=== PATIENT | male | born 1990 | race African-American/Black ===

== ENCOUNTER 2024-02-27 17:00 | Inpatient (IN) | payer OTHER ==
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
--- NOTE | 2024-02-27 18:20 | RAD REPORT ---
EXAM DESCRIPTION: US - Extremity Venous Uni Ltd - 02/27/2024 6:02 pm CLINICAL HISTORY: Pain;Swelling Leg swelling and edema. COMPARISON: No comparisons FINDINGS: Right lower extremity venous system was interrogated with Doppler technique. Normal flow, compressibility and augmentation was noted. There is no DVT present. IMPRESSION: No evidence of right lower extremity deep venous thrombosis.
--- NOTE | 2024-02-27 18:21 | RAD REPORT ---
EXAM DESCRIPTION: RAD - Chest Single View - 02/27/2024 6:13 pm CLINICAL HISTORY: SWELLING Chest pain. COMPARISON: No comparisons FINDINGS: Portable technique limits examination quality. Moderate pulmonary edema suspected. The heart is moderately enlarged. No displaced fractures. IMPRESSION: Moderate volume overload/CHF pattern.
--- NOTE | 2024-02-27 18:22 | RAD REPORT ---
EXAM DESCRIPTION: RAD - Ankle Right 3 View - 02/27/2024 6:13 pm CLINICAL HISTORY: PAIN COMPARISON: No comparisons FINDINGS: Prominent soft tissue swelling is seen about the ankle. No fracture or dislocation. No agg ressive bone lesion.
[2024-02-27] MEDS ORDERED: HYDROCODONE/APAP 7.5/325 MG TAB ONE (19:20)
[2024-02-27 19:40] LABS: PT Prothrombin Time 11.9 SECONDS (9.5-12.5); PTT, Activated Partial Thromb 38.2 SECONDS (24.3-36.9); Protime INR 1.08
[2024-02-27 19:40] LABS: Absolute Eosinophils 0.2 K/uL (0-0.5); Absolute Lymphocytes (CBC) 1.5 K/uL (0.7-4.9); Absolute Monocytes 0.6 K/uL (0.1-1.3); Absolute Neutrophil 1.6 K/uL (1.8-8.0); Basophils % 1.1 % (0-1.3); Eosinophils % 3.9 % (0-4.4); Hemoglobin 12.7 g/dL (13.6-17.9); Lymphocytes % 38.5 % (15.3-44.8); MCH 28.6 pg (27.0-35.0); MCHC 32.6 g/dL (32.0-36.0); MCV 87.8 fL (80-100); MPV 8.6 fL (7.6-11.3); Monocytes % 15.4 % (3.3-12.3); Neutrophils % 41.1 % (41.7-73.7); Nucleated Red Blood Cells % 0.4 % (0-0); Platelets 204 thou/uL (152-406); RBC Red Blood Cell Count 4.44 M/uL (4.33-5.43); Red Cell Distribution Width 13.2 % (12.1-15.2)
[2024-02-27 19:50] LABS: ALT/SGPT 71 U/L (16-61); AST/SGOT 26 U/L (15-37); Albumin 3.5 g/dL (3.4-5.0); Albumin/Globulin Ratio 0.8 (1.1-1.8); Alkaline Phosphatase 81 U/L (45-117); Anion Gap 7.6 mEq/L (5.0-15.0); BUN Blood Urea Nitrogen 12 mg/dL (7-18); Bicarbonate 29 mEq/L (21-32); Bilirubin Direct < 0.2 mg/dL (0-0.2); Bilirubin Indirect, Calculated 0.2 mg/dL (0.2-0.8); Bilirubin Total 0.4 mg/dL (0.2-1.0); Globulin 4.6 g/dL (2.3-3.5); Glomerular Filtration Rate 105 ml/min (=/>90); Glucose Level 89 mg/dL (74-106); Magnesium 1.9 mg/dL (1.6-2.4); NT PRO-BNP 23 pg/mL (<125); Potassium 3.6 mEq/L (3.5-5.1); Protein, Total 8.1 g/dL (6.4-8.2); Sodium Level 137 mEq/L (136-145)
--- NOTE | 2024-02-27 20:32 | ER ---
Nurse's Notes [facility] Name: Monica Huang Age: 33 yrs Sex: Male : 1990 Arrival Date: 02/27/2024 Time: 17:00 Bed 28 Private MD: Diagnosis: Acute pulmonary edema;Edema, unspecified-peripheral Presentation: 02/26 17:17 Chief complaint: Patient states: B leg swelling with legs weeping yellow fluid. ll1 Coronavirus screen: Client denies travel out of the [place] in the last 14 days. At this time, the client does not indicate any symptoms associated with coronavirus-19. Ebola Screen: Patient denies travel to an Ebola-affected area in the 21 days before illness onset. Initial Sepsis Screen: Does the patient meet any 2 criteria? No. Patient's initial sepsis screen is negative. Does the patient have a suspected source of infection? No. Patient's initial sepsis screen is negative. Risk Assessment: Do you want to hurt yourself or someone else? Patient reports no desire to harm self or others. Onset of symptoms was February 23, 2024. 17:17 Method Of Arrival: Ambulatory ll1 17:17 Acuity: NOE 3 ll1 Triage Assessment: 17:17 General: Appears uncomfortable, Behavior is calm, cooperative, appropriate for age. ll1 Pain: Complains of pain in right leg and left leg. Derm: Reports pain yellow drainage from legs. 17:17 Musculoskeletal: Reports pain in right leg and left leg. ll1 Historical: - Allergies: 17:18 No Known Allergies; ll1 - PMHx: 17:18 Hypertensive disorder; ll1 - PSHx: 17:18 None; ll1 - Immunization history:: Adult Immunizations up to date. - Infectious Disease History:: Denies. - Social history:: Smoking status: Patient denies any tobacco usage or history of. Screenin:00 [facility] ED Fall Risk Assessment (Adult) History of falling in the last 3 months, bm8 including since admission No falls in past 3 months (0 pts) Confusion or Disorientation No (0 pts) Intoxicated or Sedated No (0 pts) Impaired Gait No (0 pts) Mobility Assist Device Used No (0 pt) Altered Elimination No (0 pt) Score/Fall Risk Level 0 - 2 = Low Risk Oriented to surroundings, Maintained a safe environment, Educated pt \T\ family on fall prevention, incl call for assistance when getting out of bed, Assessed \T\ reinforced patient's understanding of fall precautions. Abuse screen: Denies threats or abuse. Nutritional screening: No deficits noted. Tuberculosis screening: No symptoms or risk factors identified. Assessment: 19:37 General: Appears in no apparent distress. uncomfortable, obese, well groomed, well vc1 developed, Behavior is calm, cooperative, appropriate for age. Pain: Complains of pain in left leg and right leg Pain currently is 7 out of 10 on a pain scale. Quality of pain is described as pressure, Pain began gradually. Neuro: Level of Consciousness is awake, alert, obeys commands, Oriented to person, place, time, situation, Appropriate for age. Cardiovascular: Edema belem legs. Respiratory: Airway is patent Respiratory effort is even, unlabored, Respiratory pattern is regular, symmetrical, Breath sounds are clear bilaterally. GI: No deficits noted. No signs and/or symptoms were reported involving the gastrointestinal system. : No deficits noted. No signs and/or symptoms were reported regarding the genitourinary system. EENT: No deficits noted. No signs and/or symptoms were reported regarding the EENT system. Derm: Skin is intact, is healthy with good turgor, Skin is dry, Skin is normal. 23:47 General: Dayami Huang [id number]. vc1 Vital Signs: 17:17 BP 147 / 98; Pulse 71; Resp 18; Temp 98; Pulse Ox 98% ; Pain 10/10; ll1 19:36 BP 137 / 97; Pulse 91; EtCO2 99 mmHg; kmf 23:15 BP 139 / 90; Pulse 68; Pulse Ox 99% ; kmf 17:17 Pain Scale: Adult ll1 ED Course: 17:04 Patient arrived in ED. rg4 17:08 [facility] kb 17:08 Richard Ibarra MD is Attending Physician. kb 17:18 Triage completed. ll1 17:18 Arm band placed on. ll1 18:03 US Extremity Venous Unilateral Ltd In Process Unspecified. EDMS 18:15 XRAY Chest (1 view) In Process Unspecified. EDMS 18:15 Ankle Right 3 View XRAY In Process Unspecified. EDMS 19:35 Inserted saline lock: 22 gauge in right antecubital area, using aseptic technique. kmf Blood collected. 19:35 First set of blood cultures drawn Second set of blood cultures drawn by az. kmf 19:36 EKG done, by ED staff. kmf 19:36 Blood Culture Adult (2) Sent. kmf 19:36 Lactate w/ 2H reflex if indic. Sent. kmf 19:36 Basic Metabolic Panel Sent. kmf 19:36 CBC with Diff Sent. kmf 19:36 Magnesium Sent. kmf 19:36 NT PRO-BNP Sent. kmf 19:36 PT-INR Sent. kmf 19:36 Troponin HS Sent. kmf 19:37 Door closed. Noise minimized. Warm blanket given. kmf 19:37 PTT, Activated Partial Thromb Sent. kmf 19:37 LFT's Sent. kmf 20:31 Jeffrey Womack is Hospitalizing Provider. kb 22:00 Patient has correct armband on for positive identification. Bed in low position. Call bm8 light in reach. Side rails up X2. Adult w/ patient. Provided Education on: need for admission. Client placed on continuous cardiac and pulse oximetry monitoring. NIBP monitoring applied. monitor technician on. Pulse ox on. NIBP on. 22:00 No provider procedures requiring assistance completed. Patient admitted, IV remains in bm8 place. 22:50 Raymond Martini, RN is Primary Nurse. 8 Administered Medications: 19:24 Drug: Hydrocodone-Acetaminophen PO (7.5 mg-325 mg) 1 tabs PO once Route: PO; vc1 02/27 04:30 Follow up: Response: No adverse reaction 8 02/26 21:06 Drug: Furosemide IVP 40 mg IVP once; give over 2 minutes Route: IVP; Site: right vc1 antecubital; 02/27 04:30 Follow up: Response: No adverse reaction 8 Medication: 02/26 22:00 VIS not applicable for this client. bm8 Output: 21:34 Urine: 600ml (Voided); Total: 600ml. kmf 21:55 Urine: 500ml (Voided); Total: 1100ml. kmf 22:31 Urine: 300ml; Total: 1400ml. kmf 23:15 Urine: 300ml (Voided); Total: 1700ml. kmf Outcome: 20:31 Decision to Hospitalize by Provider. kb 22:00 Admitted to ER Hold. Please see [facility] for further documentation. bm8 22:00 Condition: stable 22:00 Instructed on the need for admit, Demonstrated understanding of instructions, follow-up care, 02/27 11:55 Patient left the ED. ko1 Signatures: Dispatcher [employer] EDMS Caryn Laird, VIRI-C FINAL FINISHER FORGING DIES-Cristiana Gonzalez rg4 Doretha Reardon, RN RN ll1 Mariam Navarro RN RN vc1 Mary Jane Edouard RN RN ko1 Chelsea Mims [facility] Raymond Martini RN RN bm8 Corrections: (The following items were deleted from the chart) 02/26 17:18 17:17 Pulse 71bpm; Resp 18bpm; Pulse Ox 98%; Temp 98F; ll1 ll1
--- NOTE | 2024-02-27 20:32 | EDPHYS ---
Physician Documentation [facility] Name: Monica Huang Age: 33 yrs Sex: Male : 1990 Arrival Date: 02/27/2024 Time: 17:00 Bed 28 Private MD: ED Physician Richard Ibarra HPI: 02/26 19:33 This 33 yrs old Black Male presents to ER via Ambulatory with complaints of Leg kb Swelling. 19:33 Pt is a 33 year old male who presents for swelling to right leg that started 3 days ago kb and has gotten worse. Mother states it started leaking fluid today so they came in. Pt has had swelling like this intermittent over the last year, but never with drainage.. Historical: - Allergies: 17:18 No Known Allergies; ll1 - PMHx: 17:18 Hypertensive disorder; ll1 - PSHx: 17:18 None; ll1 - Immunization history:: Adult Immunizations up to date. - Infectious Disease History:: Denies. - Social history:: Smoking status: Patient denies any tobacco usage or history of. ROS: 19:32 Constitutional: As per HPI kb Exam: 19:32 Constitutional: This is a well developed, well nourished patient who is awake, alert, kb and in no acute distress. Head/Face: Normocephalic, atraumatic. ENT: Moist Mucous membranes Cardiovascular: Regular rate Respiratory: Respirations even and unlabored. No increased work of breathing. Talking in full sentences Abdomen/GI: Soft, non-tender. No distention Skin: Warm, dry with normal turgor. Normal color. Neuro: Awake and alert, GCS 15, oriented to person, place, time, and situation. Moves all extremities. Normal gait. 19:32 Cardiovascular: Edema: edema to bilateral lower extremities, worse on the right with weeping. , 19:32 ECG was reviewed by the Attending Physician. Vital Signs: 17:17 BP 147 / 98; Pulse 71; Resp 18; Temp 98; Pulse Ox 98% ; Pain 10/10; ll1 19:36 BP 137 / 97; Pulse 91; EtCO2 99 mmHg; kmf 23:15 BP 139 / 90; Pulse 68; Pulse Ox 99% ; kmf 17:17 Pain Scale: Adult ll1 MDM: 17:08 Patient medically screened. kb 19:33 Differential diagnosis: dvt, chf, lymph edema, cellulitis. Data reviewed: vital signs, kb nurses notes. 20:30 Consideration of Admission/Observation Patient was admitted/placed on observation. kb Escalation of care including admission/observation considered. Management of patient was discussed with the following: Hospitalist: Dr Womack accepts pt for admission. Historians other than the Patient: Parent: mother. Counseling: I had a detailed discussion with the patient and/or guardian regarding the historical points, exam findings, and any diagnostic results supporting the discharge/admit diagnosis, lab results, radiology results, the need for further work-up and treatment in the hospital. 02/26 17:24 Order name: Basic Metabolic Panel; Complete Time: 20:04 ll1 02/26 17:24 Order name: CBC with Diff; Complete Time: 19:45 ll1 02/26 17:24 Order name: Magnesium; Complete Time: 20:04 ll1 02/26 17:24 Order name: NT PRO-BNP; Complete Time: 20:04 ll1 02/26 17:24 Order name: PT-INR; Complete Time: 19:45 ll1 02/26 17:24 Order name: Troponin HS; Complete Time: 20:04 ll1 02/26 17:25 Order name: Blood Culture Adult (2) ll1 02/26 17:25 Order name: Lactate w/ 2H reflex if indic.; Complete Time: 20:04 ll1 02/26 17:25 Order name: LFT's; Complete Time: 20:04 ll1 02/26 19:29 Order name: PTT, Activated Partial Thromb; Complete Time: 19:45 EDMS 02/26 20:32 Order name: UDS 02/26 22:42 Order name: Troponin High Sensitivity; Complete Time: 22:49 EDMS 02/27 01:59 Order name: CBC with Automated Diff EDMS 02/27 02:13 Order name: Troponin High Sensitivity EDMS 02/27 02:22 Order name: Basic Metabolic Panel EDMS 02/27 02:22 Order name: Phosphorus EDMS 02/27 02:22 Order name: Lipid Profile EDMS 02/27 02:22 Order name: Magnesium EDMS 02/27 02:22 Order name: Thyroid Stimulating Hormone EDMS 02/27 02:22 Order name: Transferrin Sat/Iron Binding EDMS 02/26 17:24 Order name: XRAY Chest (1 view); Complete Time: 18:25 ll1 18 17:24 Order name: US Extremity Venous Unilateral Ltd; Complete Time: 18:25 ll1 02/26 17:24 Order name: Ankle Right 3 View XRAY; Complete Time: 18:25 ll1 18 17:24 Order name: Cardiac monitoring; Complete Time: 19:36 ll1 18 17:24 Order name: EKG - Nurse/Tech; Complete Time: 19:36 ll1 02/26 17:24 Order name: IV Saline Lock; Complete Time: 19:16 ll1 18 17:24 Order name: Labs collected and sent; Complete Time: 19:16 ll1 02/26 17:24 Order name: O2 Per Protocol; Complete Time: 19:16 ll1 02/26 17:24 Order name: O2 Sat Monitoring; Complete Time: 19:16 ll1 EC:32 Rate is 60 beats/min. Rhythm is regular. QRS [place] is Normal. UT interval is normal at kb 142 msec. QRS interval is normal at 92 msec. QT interval is normal at 418 msec. Administered Medications: 19:24 Drug: Hydrocodone-Acetaminophen PO (7.5 mg-325 mg) 1 tabs PO once Route: PO; vc1 02/27 04:30 Follow up: Response: No adverse reaction 8 02/26 21:06 Drug: Furosemide IVP 40 mg IVP once; give over 2 minutes Route: IVP; Site: right vc1 antecubital; 02/27 04:30 Follow up: Response: No adverse reaction [id number] Disposition Summary: 02/27/24 20:31 Hospitalization Ordered Notes: Hospitalization Status: Observation kb Provider: Jeffrey Womack Condition: Stable kb Problem: new kb Symptoms: are unchanged kb Bed/Room Type: Standard kb Location: Telemetry/MedSurg (observation)(02/28/24 11:02) bd Room Assignment: [facility](02/28/24 11:15) bd Diagnosis - Acute pulmonary edema kb - Edema, unspecified - peripheral kb Forms: - Medication Reconciliation Form kb - SBAR form kb - Leadership Thank You Letter kb Addendum: 03/01/2024 14:38 I was immediately available for consultation during this patient's visit. I did not e c2 personally see the patient or discuss the patient with the LEONARDO. . Signatures: Dispatcher [employer] EDMS Caryn Laird, OFFICE RENTAL CLERK-C OFFICE RENTAL CLERK-Ckb Marium Jolly Lynsay RN RN ll1 Mariam Navarro RN RN vc1 Richard Ibarra MD MD ec2 Raymond Martini RN [id number] Corrections: (The following items were deleted from the chart) 02/26 17:25 17:24 BASIC METABOLIC PANEL+C.LAB.BRZ ordered. EDMS EDMS 17:25 17:24 CBC+H.LAB.BRZ ordered. EDMS EDMS 17:25 17:24 MAGNESIUM+C.LAB.BRZ ordered. EDMS EDMS 17:25 17:24 PROBNP+C.LAB.BRZ ordered. EDMS EDMS 17:25 17:24 PROTIME (+INR)+COAG.LAB.BRZ ordered. EDMS EDMS 17:25 17:24 Troponin High Sensitivity+C.LAB.BRZ ordered. EDMS EDMS 17:25 17:25 Chest Single View+RAD.RAD.BRZ ordered. EDMS EDMS 17:25 17:25 Extremity Venous Uni Ltd+US.RAD.BRZ ordered. EDMS EDMS 17:25 17:25 Ankle Right 3 View+RAD.RAD.BRZ ordered. EDMS EDMS 17:25 17:25 BLOOD CULTURE*+BA.LAB.BRZ ordered. EDMS EDMS 17:25 17:25 LACTATE+C.LAB.BRZ ordered. EDMS EDMS 17:25 17:25 HEPATIC FUNCTION+C.LAB.BRZ ordered. EDMS EDMS 19:27 17:25 PTT, ACTIVATED+COAG.LAB.BRZ ordered. EDMS EDMS 23:18 20:31 Telemetry/MedSurg (observation) kb vc1 23:18 20:31 kb vc1 02/27 11:02 02/26 23:18 BR ER HOLD vc1 bd 02/27 11:02 02/26 23:18 ERHOLD- vc1 bd 02/27 11:15 11:02 208 bd bd
[2024-02-27] MEDS ORDERED: FUROSEMIDE 40 MG/4 ML VIAL ONE (20:33)
[2024-02-27] MEDS ORDERED: ONDANSETRON 4 MG/2 ML VIAL IV PRN (21:08)
[2024-02-27] MEDS ORDERED: ACETAMINOPHEN 500 MG TAB PO PRN (21:08)
--- NOTE | 2024-02-27 21:19 | P.HP ---
Certification for Inpatient Patient admitted to: Observation With expected LOS: <2 Midnights Practitioner: I am a practitioner with admitting privileges, knowledge of patient current condition, hospital course, and medical plan of care. Services: Services provided to patient in accordance with Admission requirements found in Title 42 Section 412.3 of the Code of Federal Regulations Patient History Date of Service: 02/27/24 Reason for admission: Lower extremity swelling and shortness of breath History of Present Illness: 33-year-old -[place] gentleman with a history of hypertension, morbidly obesity presented to the emergency department due to recurrent bilateral lower extremity swelling and pain. Patient states that he was hospitalized at [facility] 1 week ago for bilateral lower extremity swelling. He was treated with heparin drip for suspected DVT, echo had been at the [facility] which was negative for DVT. Patient was subsequently discharged. He reported his hardest bilateral lower extremity swelling for close to 1 year. He has recurrent scaly rashes on bilateral legs which was being treated as psoriasis with oral and topical steroids. Spouse reports patient snores loudly and periodically stops breathing during sleep. Patient was assessed in the ED, and noted to have significantly swollen bilateral legs. Chest x-ray demonstrated moderate volume overload/CHF pattern, however BNP is not elevated. Initial troponin is negative. Patient is hospitalized for further management. - Past Medical/Surgical History -: Hypertension -: Morbidly obese -: Recurrent lower extremity edema - Family History Mother -: Diabetes - Social History Smoking Status: Never smoker Alcohol use: Yes CD- Drugs: No Place of Residence: Home Review of Systems Other: Patient denies any chest pain, denies any palpitation, no fever or chills, no abdominal pain, no nausea vomiting or diarrhea. Except as documented all other systems reviewed and negative. Physical Examination - Physical Exam General: Alert, In no apparent distress, Oriented x3, Obese HEENT: PERRLA, Mucous membr. moist/pink, Sclerae nonicteric Neck: Supple, JVD not distended Respiratory: Clear to auscultation bilaterally, Diminished Cardiovascular: Regular rate/rhythm, Normal S1 S2, Edema (Bilateral legs) Gastrointestinal: Normal bowel sounds, Soft and benign, Non-distended, No tenderness Musculoskeletal: Swelling (Bilateral legs) Integumentary: Other (Skin no rashes with hyperpigmentation on bilateral legs) Neurological: Normal speech, Normal strength at 5/5 x4 extr, Cranial nerves 3-12 intact Lymphatics: No axilla or inguinal lymphadenopathy - Studies Laboratory Data (last 24 hrs) 02/27/24 02/27/24 02/27/24 19:21 19:20 19:20 WBC 4.00 L Hgb 12.7 L Hct 39.0 L Plt Count 204 PT 11.9 INR 1.08 APTT 38.2 H Sodium 137 Potassium 3.6 BUN 12 Creatinine 0.98 Glucose 89 Magnesium 1.9 Total Bilirubin 0.4 AST 26 ALT 71 H Alkaline Phosphatase 81 02/27/24 17:25 WBC Hgb Hct Plt Count PT INR APTT Cancelled Sodium Potassium BUN Creatinine Glucose Magnesium Total Bilirubin AST ALT Alkaline Phosphatase Assessment and Plan - Problems (Diagnosis) (1) Anasarca Current Visit: Yes Status: Acute (2) Pulmonary edema Current Visit: Yes Status: Acute (3) Acute CHF Current Visit: Yes Status: Acute (4) Anemia Current Visit: Yes Status: Acute - Plan Pulmonary edema Bilateral lower extremity edema Hypertension Likely secondary to CHF Possible etiologies include nonischemic cardiomyopathy. Admitted to the medical floor. Obtain echocardiogram IV Lasix Trend troponin. Aggressive blood pressure control. Obstructive sleep apnea suspected. Outpatient sleep study recommended to the patient. Chronic anemia Unknown etiology Normocytic. Check iron profile Monitor H&H Morbid obesity Weight loss by diet and exercise advised. Check TSH to rule out hypothyroidism. DVT prophylaxis: Lovenox Code status: Full code - Advance Directives Does patient have a Living Will: No Does patient have a Durable POA for Healthcare: No
[2024-02-28] MEDS: DIPHENHYDRAMINE 25 MG TAB/CAP PO ONE (00:26)
[2024-02-28] MEDS: HYDROCODONE/APAP 5/325 MG TAB PO PRN (00:52)
[2024-02-28] MEDS ORDERED: HYDROCODONE/APAP 5/325 MG TAB ONE ×2 (00:58→09:30)
[2024-02-28] MEDS ORDERED: DIPHENHYDRAMINE 25 MG TAB/CAP ONE (00:58)
[2024-02-28 01:08] VITALS: BMI 36.0
[2024-02-28 01:55] LABS: Absolute Eosinophils 0.1 K/uL (0-0.5); Absolute Lymphocytes (CBC) 1.4 K/uL (0.7-4.9); Absolute Monocytes 0.6 K/uL (0.1-1.3); Absolute Neutrophil 1.4 K/uL (1.8-8.0); Basophils % 0.8 % (0-1.3); Eosinophils % 3.9 % (0-4.4); Hematocrit 38.1 % (39.6-49.0); Hemoglobin 12.6 g/dL (13.6-17.9); Lymphocytes % 38.3 % (15.3-44.8); MCH 28.8 pg (27.0-35.0); MCHC 33.1 g/dL (32.0-36.0); MCV 87.1 fL (80-100); MPV 8.4 fL (7.6-11.3); Monocytes % 17.4 % (3.3-12.3); Neutrophils % 39.6 % (41.7-73.7); Nucleated Red Blood Cells % 0.1 % (0-0); Platelets 213 thou/uL (152-406); RBC Red Blood Cell Count 4.38 M/uL (4.33-5.43); Red Cell Distribution Width 13.2 % (12.1-15.2)
[2024-02-28 02:22] LABS: Anion Gap 10.6 mEq/L (5.0-15.0); Magnesium 1.8 mg/dL (1.6-2.4); Phosphorus 4.8 mg/dL (2.5-4.9); Potassium 3.6 mEq/L (3.5-5.1); Thyroid Stimulating Hormone 3.21 uIU/mL (0.358-3.740)
[2024-02-28] MEDS ORDERED: MORPHINE 2 MG/ML SYR ONE (02:33)
--- NOTE | 2024-02-28 06:57 | P.PN ---
Date of Service: 02/28/24 Subjective: edema and pain improving denies prior diagnosis of CHF, no prior echo reports some shortness of breath recently ROS: 10 point ROS as noted above, otherwise negative Physical Exam: GEN: Alert, oriented, NAD HEENT: Normal conjunctiva, sclera anicteric CV: Regular rate and rhythm, Bilateral lower extremity edema, RLE: 2-3+, LLE: 1- 2+ Pulm: Nonlabored respirations on room air at rest, diminished at bases bilaterally ABD: Soft, nontender, nondistended Neuro: Normal speech, normal affect SKin: b/l lower extremities with cracking, peeling skin, no active drainage vitals reviewed Problem List: Bilateral lower extremity edema Hypertension Chronic anemia Suspected undiagnosed obstructive sleep apnea h/o psoriasis Bilateral lower extremity edema Reports recurrent bilateral lower extremity swelling/pain. Patient recently hospitalized at [place] ~1 week ago for BLE edema, possible DVT 2 episodes in total - 1st was year ago, lasted ~1 month and resolved, now happening again, same month a year later denies any instigating factors/event right leg always swells more than left leg Unclear etiology, ?new onset CHF. CXR (02/26): moderate CHF / volume overload venous u/s (02/26): no DVT of RLE Troponins negative x3, monitor on telemetry Cardiology consulted echo ordered Start IV lasix 40 mg BID Hypertension confirm home meds, restart as appropriate Chronic anemia Unknown etiology. Normocytic. Iron studies wnl Suspected undiagnosed obstructive sleep apnea Family reports patient snores loudly and intermittently stops breathing during sleep. Consider outpatient sleep study in near future to eval for obstructive sleep apnea. VTE: Lovenox Code: Full Dispo: Home, ~1-2 days Pending cardiac recs / further diuresis
[2024-02-28] MEDS: POTASSIUM 25 MEQ EFFERV TAB PO ONE (08:00)
[2024-02-28] MEDS: MAGNESIUM SULFATE 1 gm IVPB 1 GM/100 ML BAG IV ONE (08:00)
[2024-02-28] MEDS ORDERED: ASPIRIN EC 81 MG TAB PO ONE (08:40)
[2024-02-28] MEDS ORDERED: POTASSIUM 25 MEQ EFFERV TAB ONE (08:41)
[2024-02-28] MEDS ORDERED: ENOXAPARIN 40 MG/0.4 ML SQ ONE (08:41)
[2024-02-28] MEDS ORDERED: FUROSEMIDE 40 MG/4 ML VIAL ONE (08:41)
[2024-02-28] MEDS ORDERED: MAGNESIUM SULFATE 1 gm IVPB 1 GM/100 ML BAG IV ONE (08:42)
[2024-02-28] MEDS: ENOXAPARIN 40 MG/0.4 ML SQ SCH (09:00)
[2024-02-28] MEDS: ASPIRIN EC 81 MG TAB PO SCH (09:00)
[2024-02-28] MEDS: FUROSEMIDE 40 MG/4 ML VIAL IV SCH (09:00)
[2024-02-28 12:14] VITALS: O2SAT 99
--- NOTE | 2024-02-28 17:15 | P.CNS ---
Date of Consult: 02/28/24 Chief Complaint: Lower extremity swelling and shortness of breath History of Present Illness: Patient with no significant PMH except for ETOH use presented with swelling of bilateral lower extremities and SOB, he denies chest pain, no palpitations, no syncope, no family history of heart disease. Allergies No Known Allergies Allergy (Unverified 02/27/24 22:02) Home Medications: NK [No Home Meds] 02/28/24 - Past Medical/Surgical History -: Hypertension -: Morbidly obese -: Recurrent lower extremity edema - Family History Mother Medical History: Diabetes - Social History Alcohol use: Yes CD- Drugs: No Place of Residence: Home Review of Systems 10-point ROS is otherwise unremarkable Physical Examination Temp Pulse Resp BP Pulse Ox 97.8 F 67 16 119/80 97 02/28/24 16:00 02/28/24 16:00 02/28/24 16:00 02/28/24 16:00 02/28/24 16:00 General: Alert, In no apparent distress HEENT: Atraumatic, PERRLA, Mucous membr. moist/pink, EOMI, Sclerae nonicteric Neck: Supple, 2+ carotid pulse no bruit, No LAD, Without JVD or thyroid abnormality Respiratory: Clear to auscultation bilaterally, Normal air movement Cardiovascular: Regular rate/rhythm, Normal S1 S2, Edema Gastrointestinal: Normal bowel sounds, No tenderness Musculoskeletal: No tenderness Integumentary: No rashes Neurological: Normal gait, Normal speech, Normal tone, Normal affect Lymphatics: No axilla or inguinal lymphadenopathy Laboratory Data (last 24 hrs) 02/27/24 02/27/24 02/27/24 19:21 19:20 19:20 WBC 4.00 L Hgb 12.7 L Hct 39.0 L Plt Count 204 PT 11.9 INR 1.08 APTT 38.2 H Sodium 137 Potassium 3.6 BUN 12 Creatinine 0.98 Glucose 89 Magnesium 1.9 Total Bilirubin 0.4 AST 26 ALT 71 H Alkaline Phosphatase 81 02/27/24 17:25 WBC Hgb Hct Plt Count PT INR APTT Cancelled Sodium Potassium BUN Creatinine Glucose Magnesium Total Bilirubin AST ALT Alkaline Phosphatase - Problems (1) Bilateral lower extremity edema Current Visit: Yes Status: Acute Plan: agree with IV diuresis with Lasix Monitor input and output and correct electrolytes Get Echo in am (2) HTN (hypertension) Current Visit: Yes Status: Acute Plan: start patient on Coreg 3.125 mg po BID continue to monitor. (3) Hypertriglyceridemia Current Visit: Yes Status: Acute Plan: mild elevated TG, recommend diet, exercise and weight loss and repeat lipid panel in 3 months.
[2024-02-28 18:41] LABS: Barbiturates NEGATIVE (NEGATIVE); Benzodiazepines NEGATIVE (NEGATIVE); Cocaine NEGATIVE (NEGATIVE); METHAMPHETAM NEGATIVE (NEGATIVE); Methadone NEGATIVE (NEGATIVE); Opiates NEGATIVE (NEGATIVE); Phencyclidine NEGATIVE (NEGATIVE); THC Cannibis NEGATIVE (NEGATIVE)
[2024-02-29 03:50] LABS: Absolute Eosinophils 0.2 K/uL (0-0.5); Absolute Lymphocytes (CBC) 1.6 K/uL (0.7-4.9); Absolute Monocytes 0.8 K/uL (0.1-1.3); Absolute Neutrophil 1.6 K/uL (1.8-8.0); Basophils % 0.7 % (0-1.3); Eosinophils % 4.1 % (0-4.4); Hematocrit 39.7 % (39.6-49.0); Hemoglobin 12.9 g/dL (13.6-17.9); Lymphocytes % 38.7 % (15.3-44.8); MCH 28.6 pg (27.0-35.0); MCHC 32.5 g/dL (32.0-36.0); MCV 87.8 fL (80-100); MPV 9.1 fL (7.6-11.3); Monocytes % 18.6 % (3.3-12.3); Neutrophils % 37.9 % (41.7-73.7); Nucleated Red Blood Cells % 0.1 % (0-0); Platelets 232 thou/uL (152-406); RBC Red Blood Cell Count 4.51 M/uL (4.33-5.43); Red Cell Distribution Width 12.9 % (12.1-15.2)
[2024-02-29 04:18] LABS: Anion Gap 5.5 mEq/L (5.0-15.0); Potassium 3.5 mEq/L (3.5-5.1)
[2024-02-29] MEDS: POTASSIUM CL SA 10 MEQ TAB PO ONE (08:02)
--- NOTE | 2024-02-29 09:32 | P.PN ---
Date of Service: 02/29/24 Subjective: edema slowly improving, left leg better than right no drainage breathing slightly improved echo done this morning, pending read ROS: 10 point ROS as noted above, otherwise negative Physical Exam: GEN: Alert, oriented, NAD HEENT: Normal conjunctiva, sclera anicteric CV: Regular rate and rhythm, Bilateral lower extremity edema, RLE: 2+, LLE: 1+ Pulm: Nonlabored respirations on room air at rest, diminished at bases bilaterally ABD: Soft, nontender, nondistended Neuro: Normal speech, normal affect Skin: b/l lower extremities with cracking, peeling skin, no active drainage, no erythema vitals reviewed Problem List: Bilateral lower extremity edema Hypertension Chronic anemia Suspected undiagnosed obstructive sleep apnea h/o psoriasis anemia of chronic disease Bilateral lower extremity edema Reports recurrent bilateral lower extremity swelling/pain. Patient recently hospitalized at [place] ~1 week ago for BLE edema, possible DVT states he was discharged without any medications/prescriptions and told to follow up with PCP. He is unable to tell me what he was told 2 episodes in total - 1st was year ago, lasted ~1 month and resolved, now happening again, same month a year later denies any instigating factors/event right leg always swells more than left leg Unclear etiology, ?new onset CHF. untreated sleep apnea, psoriasis/inflammation CXR (02/26): moderate CHF / volume overload venous u/s (02/26): no DVT of RLE Troponins negative x3 Cardiology consulted echo ordered to eval EF / stenosis, done today, pending read continue IV lasix 40 mg BID repeat CXR 02/28, re-eval pulm edema Hypertension confirm home meds, restart as appropriate consider adding coreg 3.125 per cardio if BP allows BP has been on low-normal side anemia of chronic disease Normocytic. Iron studies wnl hgb stable Suspected undiagnosed obstructive sleep apnea Family reports patient snores loudly and intermittently stops breathing during sleep. Consider outpatient sleep study in near future to eval for obstructive sleep apnea. VTE: Lovenox Code: Full Dispo: Home, ~1-2 days Pending echo / further diuresis
--- NOTE | 2024-02-29 11:09 | P.PN ---
Subjective Date of Service: 02/29/24 Chief Complaint: Lower extremity swelling and shortness of breath Subjective: No new changes, No C/O voiced, Tolerating diet, Ambulating, Improving Review of Systems 10-point ROS is otherwise unremarkable Physical Examination - Vital Signs Temperature: 97.8 F Blood Pressure: 103/65 Pulse: 63 Respirations: 17 Pulse Ox (%): 97 - Physical Exam General: Alert, In no apparent distress HEENT: Atraumatic, PERRLA, EOMI Neck: Supple, JVD not distended Respiratory: Clear to auscultation bilaterally, Normal air movement Cardiovascular: Regular rate/rhythm, Normal S1 S2, Edema Gastrointestinal: Normal bowel sounds, No tenderness Musculoskeletal: No tenderness Integumentary: No rashes Neurological: Normal speech, Normal tone, Normal affect Lymphatics: No axilla or inguinal lymphadenopathy - Studies Medications List Reviewed: Yes Assessment And Plan - Current Problems (Diagnosis) (1) Bilateral lower extremity edema Current Visit: Yes Status: Acute Plan: agree with IV diuresis with Lasix Monitor input and output and correct electrolytes pending echo. (2) HTN (hypertension) Current Visit: Yes Status: Acute Plan: start patient on Coreg 3.125 mg po BID continue to monitor. (3) Hypertriglyceridemia Current Visit: Yes Status: Acute Plan: mild elevated TG, recommend diet, exercise and weight loss and repeat lipid panel in 3 months.
--- NOTE | 2024-02-29 11:47 | ECHO ---
HEIGHT: 5 ft 7 in WEIGHT: 230 lb 0 oz DATE OF STUDY: 02/29/[address]: Jeffrey Womack MD 2-DIMENSIONAL: YES M.MODE: YES DOPPLER: YES COLOR FLOW: YES TDS: PORTABLE: YES DEFINITY: BUBBLE STUDY: DIAGNOSIS: CONGESTIVE HEART FAILURE/ PEDAL EDEMA CARDIAC HISTORY: CATHERIZATION: NO SURGERY: NO PROSTHETIC VALVE: NO PACEMAKER: NO MEASUREMENTS (cm) DIASTOLIC (NORMALS) SYSTOLIC (NORMALS) IVSd 1.0 (0.6-1.2) LA Diam 3.4 (1.9-4.0) LVEF 60-65% LVIDd 3.5 (3.5-5.7) LVIDs 2.3 (2.0-3.5) %FS 35% LVPWd 1.0 (0.6-1.2) Ao Diam 3.2 (2.0-3.7) 2 DIMENSIONAL ASSESSMENT: RIGHT ATRIUM: NORMAL LEFT ATRIUM: NORMAL RIGHT VENTRICLE: NORMAL LEFT VENTRICLE: NORMAL TRICUSPID VALVE: NORMAL MITRAL VALVE: NORMAL PULMONIC VALVE: NORMAL AORTIC VALVE: NORMAL PERICARDIAL EFFUSION: NONE AORTIC ROOT: NORMAL LEFT VENTRICULAR WALL MOTION: NORMAL DOPPLER/COLOR FLOW: NORMAL COMMENTS: 1. NORMAL LEFT VENTRICULAR SYSTOLIC FUNCTION, EJECTION FRACTION 60-65%, NORMAL WALL MOTION 2. NORMAL DIASTOLIC FUNCTION 3. NORMAL FILLING PRESSURE TECHNOLOGIST: JASON HEWITT
--- NOTE | 2024-02-29 16:19 | EKG ---
Test Date: 2024-02-27 Test Time: 19:26:57 Transitional Care Nurse: SAW MEASUREMENT RESULTS: Intervals: Rate: 0 MT: QRSD: 0 QT: 0 QTc: 0 [place]: P: MT: QRS: 0 T: 0 INTERPRETIVE STATEMENTS: No QRS complexes found, no ECG analysis possible No previous ECG available for comparison Electronically Signed On 02-29-24 16:17:04 CDT by Howard Lester
--- NOTE | 2024-02-29 16:19 | EKG ---
Test Date: 2024-02-27 Test Time: 19:27:33 [employer]: SAW MEASUREMENT RESULTS: Intervals: Rate: 60 NE: 142 QRSD: 92 QT: 418 QTc: 418 [place]: P: 75 NE: 142 QRS: 43 T: 37 INTERPRETIVE STATEMENTS: Sinus rhythm with marked sinus arrhythmia Otherwise normal ECG Compared to ECG 02/27/2024 19:26:57 No significant changes Electronically Signed On 02-29-24 16:17:03 CDT by Howard Lester
--- NOTE | 2024-02-29 16:47 | RAD REPORT ---
EXAM DESCRIPTION: RAD - Chest Single View - 02/29/2024 4:40 pm CLINICAL HISTORY: f/u pulm edema, s/p diuresis Chest pain. COMPARISON: Chest Single View dated 02/27/2024 FINDINGS: Portable technique limits examination quality. The lungs are grossly clear. The heart is normal in size. No displaced fractures. IMPRESSION: No acute intrathoracic process suspected.
[2024-03-01 03:58] LABS: ALT/SGPT 91 U/L (16-61); AST/SGOT 45 U/L (15-37); Albumin 3.4 g/dL (3.4-5.0); Albumin/Globulin Ratio 0.7 (1.1-1.8); Alkaline Phosphatase 79 U/L (45-117); Anion Gap 7.7 mEq/L (5.0-15.0); BUN Blood Urea Nitrogen 12 mg/dL (7-18); Bicarbonate 30 mEq/L (21-32); Bilirubin Total 0.4 mg/dL (0.2-1.0); Globulin 4.6 g/dL (2.3-3.5); Glomerular Filtration Rate 95 ml/min (=/>90); Glucose Level 100 mg/dL (74-106); Magnesium 2.2 mg/dL (1.6-2.4); Potassium 3.7 mEq/L (3.5-5.1); Sodium Level 135 mEq/L (136-145)
[2024-03-01 04:13] LABS: NT PRO-BNP < 5 pg/mL (<125)
--- NOTE | 2024-03-01 08:30 | P.DS ---
Admission Date: 02/29/24 Discharge Date: 03/01/24 Disposition: ROUTINE DISCHARGE Discharge Condition: GOOD Reason for Admission: Lower extremity swelling and shortness of breath Consultations: Cardiology - Dr. Garnett / Dr. Lester Brief History of Present Illness: 33yo M, PMH: hypertension, morbidly obesity Patient presented to the emergency department due to recurrent bilateral lower extremity swelling and pain. Patient states that he was hospitalized at [facility] 1 week ago for bilateral lower extremity swelling. He was treated with heparin drip for suspected DVT, echo had been at the [facility] which was negative for DVT. Patient was subsequently discharged. He reported his hardest bilateral lower extremity swelling for close to 1 year. He has recurrent scaly rashes on bilateral legs which was being treated as psoriasis with oral and topical steroids. Spouse reports patient snores loudly and periodically stops breathing during sleep. Patient was assessed in the ED, and noted to have significantly swollen bilateral legs. Chest x-ray demonstrated moderate volume overload/CHF pattern, however BNP is not elevated. Initial troponin is negative. Patient is hospitalized for further management. Hospital Course: Problem List: Bilateral lower extremity edema, improving Hypertension Chronic anemia Suspected undiagnosed obstructive sleep apnea h/o psoriasis anemia of chronic disease Physician discharge instructions: Patient presented with recurrent bilateral lower extremity swelling/pain. Unclear etiology however given presentation of symptoms suspected secondary to new onset congestive heart failure. Troponins were negative. Chest xray with findings with pulmonary/interstitial edema consistent with moderate CHF / volume overload. Venous ultrasound was negative for DVT. Cardiology was consulted. Echocardiogram noted normal EF: 60-65%, normal wall motion, no evidence of diastolic dysfunction. Patient responded well to lasix and had improvement of his lower extremity edema. Patient was feeling better, lower extremity edema/pain improved, and was deemed stable for discharge. Advised patient to follow up with cardiology in 2-4 weeks for further management. Discussed exact etiology remains unclear, highest suspicion for untreated obstructive sleep apnea given his symptoms/history. Other potential causes/contributors would be some swelling from his psoriasis and can't rule out possible lymphedema. Recommend to follow up with PCP as well for further monitoring, obtaining sleep study, and if warranted, further evaluation for lymphedema. Advised to consider wearing compression stockings at home. Avoid foods high in sodium/salt. Avoid adding additional table salt to meals. Repeat blood work in ~1 week to monitor renal function. Creatinine on day of discharge: 1.07 Patient is to continue on daily lasix on discharge. Advised to check daily weight around the same time each day. Keep daily diary of weight readings to take to follow up appointments for further adjustments of lasix. If you notice as weight gain > 3-4 lbs, okay to take an extra dose of lasix that day. Medications: Lasix 20mg daily Tylenol #3 10 pills as needed for pain Follow up: PCP 3-5 days Cardiology 2-4 weeks Please call to schedule / confirm appointments Physical Exam: GEN: Alert, oriented, NAD HEENT: Normal conjunctiva, sclera anicteric CV: Regular rate and rhythm, trace-1 Bilateral lower extremity edema. R > L Pulm: Nonlabored respirations on room air at rest, diminished at bases bilaterally ABD: Soft, nontender, nondistended Neuro: Normal speech, normal affect Skin: b/l lower extremities with cracking, peeling skin, no active drainage, no erythema Vital Signs/Physical Exam: Temp Pulse Resp BP Pulse Ox 97.8 F 70 16 108/69 96 03/01/24 04:00 03/01/24 04:00 03/01/24 04:00 03/01/24 04:00 03/01/24 04:00 Laboratory Data at Discharge: WBC 4.10 thou/uL (4.3-10.9) L 02/29/24 03:02 Hgb 12.9 g/dL (13.6-17.9) L 02/29/24 03:02 Hct 39.7 % (39.6-49.0) 02/29/24 03:02 Plt Count 232 thou/uL (152-406) 02/29/24 03:02 PT 11.9 SECONDS (9.5-12.5) 02/27/24 19:21 INR 1.08 02/27/24 19:21 APTT 38.2 SECONDS (24.3-36.9) H 02/27/24 19:21 Sodium 135 mEq/L (136-145) L 03/01/24 02:58 Potassium 3.7 mEq/L (3.5-5.1) 03/01/24 02:58 BUN 12 mg/dL (7-18) 03/01/24 02:58 Creatinine 1.07 mg/dL (0.70-1.30) 03/01/24 02:58 Glucose 100 mg/dL (74-106) 03/01/24 02:58 Phosphorus 4.8 mg/dL (2.5-4.9) 02/28/24 00:17 Magnesium 2.2 mg/dL (1.6-2.4) 03/01/24 02:58 Total Bilirubin 0.4 mg/dL (0.2-1.0) 03/01/24 02:58 AST 45 U/L (15-37) H 03/01/24 02:58 ALT 91 U/L (16-61) H 03/01/24 02:58 Alkaline Phosphatase 79 U/L (45-117) 03/01/24 02:58 Triglycerides 235 mg/dL (<150) H 02/28/24 00:17 Cholesterol 159 mg/dL (<200) 02/28/24 00:17 HDL Cholesterol 45 mg/dL (40-60) 02/28/24 00:17 Cholesterol/HDL Ratio 3.53 02/28/24 00:17 Home Medications: Codeine/APAP [Tylenol W/Codeine #3 tab] 1 tab PO Q8HP PRN #10 tab 03/01/24 Furosemide [Lasix] 20 mg PO DAILY 30 Days #30 tab 03/01/24 New Medications: Codeine/APAP [Tylenol W/Codeine #3 tab] 1 tab PO Q8HP PRN #10 tab PRN Reason: Pain Furosemide [Lasix] 20 mg PO DAILY 30 Days #30 tab Physician Discharge Instructions: Physician discharge instructions: Patient presented with recurrent bilateral lower extremity swelling/pain. Unclear etiology however given presentation of symptoms suspected secondary to new onset congestive heart failure. Troponins were negative. Chest xray with findings with pulmonary/interstitial edema consistent with moderate CHF / volume overload. Venous ultrasound was negative for DVT. Cardiology was consulted. Echocardiogram noted normal EF: 60-65%, normal wall m otion, no evidence of diastolic dysfunction. Patient responded well to lasix and had improvement of his lower extremity edema. Patient was feeling better, lower extremity edema/pain improved, and was deemed stable for discharge. Advised patient to follow up with cardiology in 2-4 weeks for further management. Discussed exact etiology remains unclear, highest suspicion for untreated obstructive sleep apnea given his symptoms/history. Other potential causes/contributors would be some swelling from his psoriasis and can't rule out possible lymphedema. Recommend to follow up with PCP as well for further monitoring, obtaining sleep study, and if warranted, further evaluation for lymphedema. Advised to consider wearing compression stockings at home. Avoid foods high in sodium/salt. Avoid adding additional table salt to meals. Repeat blood work in ~1 week to monitor renal function. Creatinine on day of discharge: 1.07 Patient is to continue on daily lasix on discharge. Advised to check daily weight around the same time each day. Keep daily diary of weight readings to take to follow up appointments for further adjustments of lasix. If you notice as weight gain > 3-4 lbs, okay to take an extra dose of lasix that day. Medications: Lasix 20mg daily Tylenol #3 10 pills as needed for pain Follow up: PCP 3-5 days Cardiology 2-4 weeks Please call to schedule / confirm appointments Followup: Enoc Atkinson DO [Primary Care Provider] - 1-2 Weeks Time spent managing pt's care (in minutes): 45
[2024-03-01 08:33] VITALS: TEMP 97.4
[2024-03-01] MEDS: POTASSIUM CL SA 10 MEQ TAB PO ONE (08:45)
[2024-03-01 08:50] VITALS: BP 127/62
== END 2024-03-01 10:17 | disposition home or self-care (01) | DRG 607 ==
LOC: ER 17:00 → ERHOLD 21:06 → 2ND 02-28 11:32 → OBSVTOIN 02-29 15:59
PROVIDERS: ADMIT Internal Medicine; ATTEND Hospitalist
DX: I89.0 Lymphedema, not elsewhere classified (principal); G47.33 Obstructive sleep apnea (adult) (pediatric); I10 Essential (primary) hypertension; D50.9 Iron deficiency anemia, unspecified; E78.1 Pure hyperglyceridemia; L40.9 Psoriasis, unspecified; E66.01 Morbid (severe) obesity due to excess calories; R60.0 Localized edema; Z68.36 Body mass index [BMI] 36.0-36.9, adult
CPT/HCPCS: 36415; 71045; 80048; 80053; 80061; 80076; 80307; 83540; 83605; 83735; 83880; 84100; 84443; 84466; 84484; 85025; 85610; 85730; 87040; 93005; 93306; 93971; 94760; 96374; 99285; G0378; J1650; J1940; J2270; J3475